=== PATIENT | male | born 1935 | race Caucasian/White ===

== ENCOUNTER 2019-05-14 11:00 | Day surgery (SDC) | payer MEDICARE, BC ==
[2019-05-14] VITALS (16 sets, daily range): BP systolic 124–168; BP diastolic 48–88
[~2019-05-14] VITALS: Ht 180.3 cm; Wt 81.4 kg
[2019-05-14] MEDS ORDERED: normal saline 1000ml 1,000 ML IV PRN (11:30)
[2019-05-14 12:00] LABS: EOSINOPHILS # (AUTO) 0.1 X10'3 (0-0.9); EOSINOPHILS % (AUTO) 1.3 % (0-6); HEMOGLOBIN 8.4 g/dl (14.0-17.9); LYMPHOCYTES # (AUTO) 0.9 X10'3 (1.1-4.8); MEAN CORPUSCULAR HEMOGLOBIN 28.8 PG (27.0-31.0)
[2019-05-14 12:01] LABS: BASOPHILS % (AUTO) 0.6 % (0-1); HEMATOCRIT 24.9 % (42.0-52.0); LYMPHOCYTES % (AUTO) 10.6 % (21-51); MEAN CORPUSCULAR HGB CONC 33.6 g/dL (33.0-36.5); MEAN CORPUSCULAR VOLUME 85.7 FL (78-98); MEAN PLATELET VOLUME 6.4 FL (7.4-10.4); MONOCYTES # (AUTO) 0.5 X10'3 (0-0.9); MONOCYTES % (AUTO) 6.2 % (2-12); NEUTROPHILS # (AUTO) 6.7 X10'3 (1.8-7.7); NEUTROPHILS % (AUTO) 81.3 % (42-75); PLATELET COUNT 649 X10'3 (140-440); RED CELL DISTRIBUTION WIDTH 17.3 % (11.5-14.5); WHITE BLOOD COUNT 8.2 X10'3 (4.5-11.0)
[2019-05-14 12:08] LABS: ALBUMIN 2.4 G/DL (3.4-5.0); ANION GAP 9 (8-16); BLOOD UREA NITROGEN 16 MG/DL (7-18); BUN/CREATININE RATIO 15.8 (5.4-32.0); CHLORIDE 102 MMOL/L (99-107); CREATININE 1.01 MG/DL (0.60-1.10); GLUCOSE 99 MG/DL (70-104); POTASSIUM 3.9 MMOL/L (3.5-5.1); SODIUM 137 MMOL/L (135-145); TOTAL CARBON DIOXIDE 26.4 MMOL/L (24-32); eGFR 70 ML/MIN
[2019-05-14] MEDS ORDERED: SIMV20TA PO (13:09)
[2019-05-14] MEDS ORDERED: FOLI PO (13:09)
[2019-05-14] MEDS ORDERED: DUTA0.5C16 PO (13:09)
[2019-05-14] MEDS ORDERED: OMEP20CA11 PO (13:09)
[2019-05-14] MEDS ORDERED: CLOP75TA33 PO (13:09)
[2019-05-14 13:14] LABS: PLATELET ESTIMATE INCREASED
[2019-05-14 13:15] LABS: ANISOCYTOSIS 1+; POLYCHROMASIA 1+
[2019-05-14] MEDS ORDERED: fentaNYL/PF 50MCG/1 ML 2ML syringe ONE (13:50)
[2019-05-14] MEDS ORDERED: midazolam 2 mg/2 ml injection ONE (13:50)
[2019-05-14] MEDS ORDERED: normal saline 1000ml 1,000 ML IV SCH (13:54)
== END 2019-05-14 16:45 | disposition home or self-care (01) ==
LOC: SSTAY O 11:00
PROVIDERS: ATTEND Radiology Vascular & Interventional Radiology
DX: T81.43XA Infection following a procedure, organ and space surgical site, initial encounter (principal); Z79.01 Long term (current) use of anticoagulants; Z79.899 Other long term (current) drug therapy; Z72.89 Other problems related to lifestyle; Z87.891 Personal history of nicotine dependence; Y83.8 Other surgical procedures as the cause of abnormal reaction of the patient, or of later complication, without mention of misadventure at the time of the procedure; Y92.89 Other specified places as the place of occurrence of the external cause
CPT/HCPCS: 36415; 49406; 80048; 85025; 87070; 87077; 87186; 99152; 99153; J2250; J3010; J7030